=== PATIENT | female | born 1985 | race African-American/Black ===

== ENCOUNTER 2018-08-03 03:59 | Emergency (ER) | payer OTHER ==
[~2018-08-03] VITALS: Ht 167.6 cm; Wt 81.6 kg
[2018-08-03] MEDS ORDERED: XANAX2 MG (04:18)
== END 2018-08-03 11:33 | disposition home or self-care (01) ==
LOC: ER 03:59
DX: R45.851 Suicidal ideations (principal); F32.9 Major depressive disorder, single episode, unspecified